=== PATIENT | male | born 1970 | race Caucasian/White ===

== ENCOUNTER 2018-09-07 13:15 | Outpatient (RCR) | payer OTHER | END 2018-11-30 | LOC: WSC | DX: M25.511 Pain in right shoulder (principal) ==

== ENCOUNTER → 2018-09-20 | Outpatient (CLI) | payer OTHER | LOC: COL.RAD 14:00 | DX: M48.02 Spinal stenosis, cervical region (principal); M54.12 Radiculopathy, cervical region ==